=== PATIENT | female | born 1960 | race Caucasian/White ===

== ENCOUNTER 2023-11-08 09:25 | Inpatient (IN) | payer MEDICARE, OTHER, SELFPAY ==
[2023-11-08] VITALS (31 sets, daily range): BP systolic 130–235; BP diastolic 55–122; PULSE 68–78; RESP 12–20; TEMP 36–36.6; O2SAT 90–98; BMI 44.1; BMI 43.4
--- NOTE | 2023-11-08 09:44 | CT_ITS ---
STUDY: CT BRAIN WITHOUT CONTRAST REASON FOR EXAM: Female, 63 years old. Headache, high BP RADIATION DOSAGE (If Supplied By Facility): CTDIvol = ( 44.99 ) mGy, DLP = ( 812.98 ) mGycm TECHNIQUE: Transaxial CT imaging of the brain was performed without administration of intravenous contrast material. Individualized dose optimization techniques were used for this CT. COMPARISON: No relevant priors. FINDINGS: Normal soft tissue structures. Normal calvarium. There is mild cerebral atrophy with widening of the extra-axial spaces and ventricular dilatation. Normal white matter tracts of the cerebral hemispheres. Normal basal ganglia and thalami. Normal brainstem. Normal cerebellum. There is no intracranial hemorrhage. There are no findings of an acute ischemic infarction. Normal visualized paranasal sinuses. CT/Brain/Head without Contrast IMPRESSION: Chronic involutional changes of the brain. Electronically Signed: Moshe Arguello MD at 10:19 EDT ,
--- NOTE | 2023-11-08 09:45 | EX.ED.VIS.HA ---
HPI History of Present Illness Chief Complaint: Headache Informant: patient and EMS Narrative Narrative: 63-year-old female presents around 9:30 AM for severe headache that she woke up with a couple hours ago this morning. It is bifrontal. Other than some nausea no other symptoms. She has had no syncope or loss of consciousness since she woke up with this. She does not usually get headaches that she took her blood pressure at home, and it was 218/137. She called her daughter who is a shopper insights manager and asked her for advice and she advised that she call her local EMS and present to the ER which she did. She does not take any medication for blood pressure. She has a PCP that she sees regularly. She denies any recent illness or injury, she denies taking any zgbc-rel-sukspuu medications for anything recently except from ibuprofen this morning for the headache after it started. She denies any focal neurologic symptoms, problems with urine output, or chest discomfort/dyspnea. Pain does not go into her neck or anywhere else. She denies any photophobia or vision changes or peripheral neurologic symptoms. PFSH PFSH Medical History no medical history no medical history Allergy/AdvReac Type Severity Reaction Status Date / Time No Known Allergies Allergy Verified 11/08/23 09:27 Family History no significant family his Surgical History H/O myomectomy Social History household members: spouse housing: house current occupational status: employed Smoking Status: Never smoker ROS ROS ED Constitutional Constitutional ED: Denies chills or fever(s) Eyes Eyes: Denies change in vision or diplopia ENT ENT ED: Denies rhinorrhea or sore throat Cardiovascular Cardiovascular: Denies chest pain or palpitations Respiratory/Chest Respiratory/Chest: Denies cough or dyspnea Gastrointestinal Gastrointestinal: Reports nausea; Denies abdominal pain, diarrhea or vomiting Genitourinary Genitourinary ED: Denies dysuria or hematuria Musculoskeletal Musculoskeletal: Denies back pain or neck pain Integumentary Denies abscess or rash Neurologic Neurologic: Reports as per HPI and headache(s); Denies paresthesias, seizure-like activity or weakness Psychiatric Psychiatric: Denies suicidal thoughts EXAM Physical Exam Const Vital Signs: 11/08/23 09:27 11/08/23 09:52 11/08/23 10:23 Temperature 96.8 F L Temperature Source Temporal Pulse Rate 78 76 70 Respiratory Rate 14 16 Blood Pressure 235/122 H 234/113 H 212/108 H Blood Pressure Mean 159 153 142 Pulse Ox 98 98 Oxygen Delivery Method Room Air Room Air 11/08/23 11:00 11/08/23 11:30 11/08/23 12:00 Temperature Temperature Source Pulse Rate 68 70 Respiratory Rate 12 16 Blood Pressure 219/110 H 228/110 H 216/109 H Blood Pressure Mean 146 149 144 Pulse Ox 94 Oxygen Delivery Method 11/08/23 12:50 11/08/23 12:53 Temperature Temperature Source Pulse Rate 70 70 Respiratory Rate 16 16 Blood Pressure 211/101 H 211/101 H Blood Pressure Mean 137 137 Pulse Ox 95 Oxygen Delivery Method Room Air Positive well nourished and well developed General Appearance ED: well developed and NAD HEENT Reports moist mucous membranes normocephalic and atraumatic Eyes PERRL and EOMs intact bilaterally Neck full ROM, no lymphadenopathy, supple and no meningeal signs Resp normal respiratory effort and clear to auscultation bilaterally Cardio regular rate and regular rhythm Cardio Narrative: Suspect soft systolic ejection murmur LLSB 1 GI non-tender and non-distended Auscultation: normoactive bowel sounds Palpation: soft Back/Spine no CVA tenderness General Back: other FROM Extremity normal to inspection General Extremety ED: Negative for edema, pulses abnormal or tenderness General Extremity: Negative for edema or pulses abnormal Neuro oriented x3, CN's II-XII intact bilaterally and no sensory deficits noted Neuro Narrative: Normal speech and receptionist clerk. Normal sensation and strength. Rgtlbb-rb-[id number] and tjks-xp-[id number] normal bilaterally. NIHSS 0. Sensorium / Orientation: awake and alert Motor Exam: strength 5/5 throughout Psych mental status grossly normal Skin no rashes or lesions noted and no wounds MDM MDM MDM Narrative Medical decision making narrative: Sent the patient for stat CT of the head, it is negative for acute hemorrhage, I reviewed the images and report which I agree with, and I am at a very low suspicion for an acute subarachnoid hemorrhage based on the patient's symptoms, I do not think she needs a CTA or a lumbar puncture. Labs are noted she is hyperglycemic. She is not a known diabetic. Unknown how this could be related to her headaches. She is not hypercalcemic. In the meantime while we are working her up, she was given several doses of antihypertensives. Initially labetalol 20 mg, followed by hydralazine 10 mg later, neither 1 of these really touched her blood pressure. I cannot get her below 216/109. She still has a headache but she is neurologically intact and stable. I advised admitting her to the hospital for placing her on a Cardene drip with a goal to be systolic 160. Discussed with hospitalist. In discussing with patient further, the last time she checked her blood pressure other than today --she was at her doctor 5 days ago and it was 175 systolic in the office. The last time she had seen her doctor prior to that was 2012 and she really does not check her blood pressure. However after the doctor's visit, she is been checking it all week and it has been around 200 or so until today when it was higher. She was not prescribed any antihypertensives yet. She was post to follow-up in December. Since I am having trouble controlling her blood pressure I think admitting her to get it under control is going to be best for her. She is amenable to that. Lab Data Attestation: I reviewed the patient's lab results. Labs: Laboratory Results - last 24 hr 11/08/23 09:35 WBC 8.9 RBC 6.69 H Hgb 15.7 H Hct 52.2 H MCV 78.0 L MCH 23.5 L MCHC 30.1 L RDW Std Deviation 39.2 RDW Coeff of Osmin 14.7 H Plt Count 278 MPV 11.0 Immature Gran % (Auto) 0.200 Neut % (Auto) 71.4 H Lymph % (Auto) 17.9 L Nelson % (Auto) 7.4 Eos % (Auto) 2.1 Baso % (Auto) 1.0 Absolute Neuts (auto) 6.4 Absolute Lymphs (auto) 1.60 Nucleated RBC % 0 Sodium 134 L Potassium 4.1 Chloride 98 Carbon Dioxide 28.0 Anion Gap 8 BUN 19 H Creatinine 0.77 Estim Creat Clear Calc 87.90 Est GFR (MDRD) Af Amer 97 Est GFR (MDRD) Non-Af 80 BUN/Creatinine Ratio 24.8 H Glucose 372 H Calcium 8.8 Radiography Diagnostic Testing: Clinical Impression(s) from Imaging Studies Brain CT 11/08/23 09:44 IMPRESSION: Chronic involutional changes of the brain. Electronically Signed: Moshe Arguello MD at 10:19 EDT , Management Discussion w/another healthcare provider: Hospitalist Critical Care Time Critical Care Time: Yes Critical care time (excluding procedures): 30-74 minutes (33 min), Including time spent:, Discussing w/Patient &/or Family/Customs Consultant, Discussing w/Consultants, Arranging Admission or Transfer and Performing Direct Patient Care at Bedside Discharge Plan Dx/Rx/DC Orders Clinical Impression: Malignant hypertensive urgency, Acute hyperglycemia Disposition Disposition: [facility]
[2023-11-08 09:50] LABS: Absolute Neutrophil Count 6.4 X10^3/uL (2.0-7.7); Basophil# 0.09 X10^3/uL; Eosinophil# 0.19 X10^3/uL; Eosinophils% 2.1 % (0-5); Hematocrit 52.2 % (37-47); Hemoglobin 15.7 g/dL (12.0-15.0); Lymphocyte % 17.9 % (19-41); Mean Corp Hgb Conc 30.1 g/dL (32-36); Mean Corpuscular Hgb 23.5 pg (27.0-32.0); Monocyte# 0.66 X10^3/uL; Monocyte% 7.4 % (0-10); NRBC Flagged by Analyzer 0 % (0-5); Neutrophil # 6.37 X10^3/uL (2.7-7.7); Neutrophil % 71.4 % (47-70); Platelet Count 278 K/mm3 (150-450); RBC Distribution Width CV 14.7 % (11.6-14.6); RBC Distribution Width SD 39.2 fl (35.1-43.9); Red Blood Count 6.69 M/mm3 (4.2-5.4); White Blood Count 8.9 K/mm3 (4.4-11.0)
[2023-11-08] MEDS: Labetalol (Prefilled) 20 MG/4 ML IV (09:52)
[2023-11-08 10:02] LABS: Anion Gap 8 (5-15); BUN 19 mg/dL (7-18); BUN/Creat Ratio 24.8 RATIO (10-20); Calcium,Total 8.8 mg/dL (8.5-10.1); Chloride 98 mmol/L (98-107); Creatinine, Serum 0.77 mg/dL (0.55-1.02); EST Glomerular Filtration Rate 80 mL/min (>60); Est Glom Filt Rate - Afr Amer 97 mL/min (>60); Glucose 372 mg/dL (74-106); Potassium 4.1 mmol/L (3.5-5.1); Sodium Level 134 mmol/L (136-145)
[2023-11-08] MEDS: hydrALAZINE 20 MG/ML Vial 10 MG IV (11:29)
[2023-11-08] MEDS: NICARdipine 25 MG in 0.9% Normal Saline (250mL Bag) 240 ML 50 MG CONT INF (12:50)
--- NOTE | 2023-11-08 13:56 | ECHOD_ITS ---
Reason For Study: HTN Procedure This was a 2D Doppler, Color Flow transthoracic echocardiogram. Myocardial strain analysis was performed in this exam to aid in the assessment of cardiac function. Exam performed portable in ICU/CCU. Left Ventricle Normal LV size. Moderate concentric left ventricular hypertrophy. The left ventricular ejection fraction is 55 %. Stage 2 diastolic dysfunction. No regional wall motion abnormalities noted. Right Ventricle Normal RV size. Normal systolic function. Atria The left atrium is mildly enlarged. Normal right atrium. Mitral Valve There is mild mitral annular calcification. Mild (1+) eccentric mitral valve insufficiency. Tricuspid Valve Normal tricuspid valve. Mild (1+) tricuspid valve insufficiency. Pulmonary artery systolic pressure is 38 mmHg. Aortic Valve Trisinus/trileaflet aortic valve. Mild focal aortic valve calcification. Pulmonic Valve Normal pulmonic valve. Great Vessels Normal aortic root. The pulmonary artery is normal size. Normal inferior vena cava. Pericardium/Pleural No pericardial effusion. MMode/2D Measurements & Calculations LVIDd: 4.9 cm IVSd: 1.3 cm Ao root diam: 3.3 cm LVIDs: 3.5 cm LVPWd: 1.5 cm RVDd: 3.9 cm FS: 28.6 % LAV(MOD-bp): 72.2 ml LVAd ap4: 26.0 cm2 SV(MOD-sp4): 38.8 ml LAV(MOD-bp) Indexed: 33.2 ml/m2 LVLd ap4: 7.9 cm LAV(MOD-sp2): 75.2 ml EDV(MOD-sp4): 72.9 ml LAV(MOD-sp4): 65.1 ml EDV(sp4-el): 72.8 ml LVAs ap4: 15.8 cm2 LVLs ap4: 6.6 cm ESV(MOD-sp4): 34.0 ml ESV(sp4-el): 32.3 ml EF(MOD-sp4): 53.3 % EF(sp4-el): 55.7 % SV(sp4-el): 40.5 ml LA A4 area: 23.2 cm2 LA dimension(2D): 4.4 cm RA A4 area: 17.6 cm2 TAPSE: 3.0 cm Time Measurements MV dec time: 0.21 sec Doppler Measurements & Calculations MV E max luca: 96.9 cm/sec Lat Peak E' Luca: 6.9 cm/sec Med Peak E' Luca: 5.9 cm/sec MV A max luca: 65.3 cm/sec E/E' lat: 14.0 E/E' med: 16.6 MV E/A: 1.5 Ao V2 max: 175.7 cm/sec LV V1 max: 112.5 cm/sec MV dec slope: 471.5 cm/sec2 Ao max P.3 mmHg LV V1 max P.1 mmHg Ao V2 mean: 127.3 cm/sec Ao mean P.0 mmHg Ao V2 VTI: 39.7 cm PA V2 max: 102.7 cm/sec TR max luca: 295.3 cm/sec TR max P.9 mmHg ECHO/Echo Complete Interpretation Summary Normal LV size. The left ventricular ejection fraction is 55 %. Stage 2 diastolic dysfunction. Moderate concentric left ventricular hypertrophy. The global longitudinal strain = -15.3% (abnormal). The global longitudinal str ain is mildly abnormal. Ordering Physician: Javon Urbina Referring Physician: Kassandra Hollins Performed By: Nyasia Garnett, TINCS, RVT
[2023-11-08] MEDS: amLODIPine 10 MG Tablet PO (14:18)
--- NOTE | 2023-11-08 15:00 | CASEMGMT ---
RN CM Face to Face with patient for initial transition planning/care coordination assessment. RN CM introduced self and role at [facility]. Patient lying in bed, alert and oriented. Patient willing to participate in assessment and is able to answer all questions appropriately. Care providers, pharmacy, and demographics verified. PCP: Gunjan Specialists: none Preferred Pharmacy: [facility] Prescription Benefit: yes Living Will/HPOA: none LNOK: , daughter Living Arrangements: Patient lives with in a 2 story home with bed and bath on first floor, 5 steps to enter. Patient is independent at home. Transportation: self, DME/HHC: Patient has BP cuff and walker at home. No previous HHC or SNF Patient wishes to discharge home, denies need for home health at this time. Patient states he has no further needs or concerns at this time. CM to follow for discharge planning needs that may arise. Disposition Plan: Patient to discharge home with family support and follow-up plans in place. Meseret CRESPO, RN, CM
[2023-11-08] MEDS: Lisinopril 5 MG Tablet PO ×2 (15:11→21:18)
[2023-11-08] MEDS: Carvedilol 6.25 MG Tablet PO ×2 (15:11→21:18)
[2023-11-08 15:39] LABS: Bedside Glucose 365 mg/dL (74-106)
[2023-11-08] MEDS: Insulin Lispro 100 UNIT/ML INSULN.PEN SC ×2 (15:56→21:17)
[2023-11-08 16:36] LABS: Hemoglobin A1c 11.2 % (3.8-5.6)
--- NOTE | 2023-11-08 17:51 | PCM.HP.STD ---
HPI - General General Date of Admission: 11/08/23 HPI Narrative NASEEM ROTHMAN, is a 63 F who presents to the hospital with significant headache that started this morning when she woke up. She has been having issues with elevated blood pressures and had gone to her doctor a few days ago and was found to have systolics at 175. It appears that they are waiting for lab work to come back prior to starting any medications. Here in the ER her systolics were over 200 and it was not responsive to labetalol and so she was started on nicardipine drip. She states that about 3-1/2 years ago her systolic blood pressure was in the 130s and that she recently has lost about 100 pounds. Of note her blood sugar was also in the 300s and A1c was ordered in the ER which was 11.2. [facility] Medical History no medical history Allergy/AdvReac Type Severity Reaction Status Date / Time No Known Allergies Allergy Verified 11/08/23 09:27 Family History (Updated 11/08/23 @ 17:[address] Javon Urbina MD) Other Cancer Heart disease Family History no significant family his Surgical History H/O myomectomy Social History household members: spouse housing: house current occupational status: employed Smoking Status: Never smoker ROS Constitutional Constitutional: Denies chills, fatigue, fever(s) or malaise Eyes Eyes: Denies blurry vision ENT HEENT: Reports headache(s); Denies nasal discharge Cardiovascular Cardiovascular: Reports dyspnea on exertion; Denies chest pain or syncope Respiratory/Chest Respiratory/Chest: Denies cough, shortness of breath at rest or shortness of breath with exertion Gastrointestinal Gastrointestinal: Denies constipation, diarrhea, nausea or vomiting Genitourinary Genitourinary: Denies dysuria Neurologic Neurologic: Denies focal weakness, numbness or tremor(s) Psychiatric Psychiatric: Denies anxiety or depression Vital Signs Vital Signs Vital Signs: 11/08/23 09:27 11/08/23 09:52 11/08/23 10:23 Temperature 96.8 F L Temperature Source Temporal Pulse Rate 78 76 70 Respiratory Rate 14 16 Blood Pressure 235/122 H 234/113 H 212/108 H Blood Pressure Mean 159 153 142 Blood Pressure Source Blood Pressure Position Blood Pressure Location Pulse Ox 98 98 Oxygen Delivery Method Room Air Room Air 11/08/23 11:00 11/08/23 11:30 11/08/23 12:00 Temperature Temperature Source Pulse Rate 68 70 Respiratory Rate 12 16 Blood Pressure 219/110 H 228/110 H 216/109 H Blood Pressure Mean 146 149 144 Blood Pressure Source Blood Pressure Position Blood Pressure Location Pulse Ox 94 Oxygen Delivery Method 11/08/23 12:50 11/08/23 12:53 11/08/23 12:56 Temperature Temperature Source Pulse Rate 70 70 70 Respiratory Rate 16 16 17 Blood Pressure 211/101 H 211/101 H 208/95 H Blood Pressure Mean 137 137 129 Blood Pressure Source Blood Pressure Position Blood Pressure Location Pulse Ox 95 Oxygen Delivery Method Room Air 11/08/23 13:00 11/08/23 13:05 11/08/23 13:10 Temperature Temperature Source Pulse Rate 70 72 71 Respiratory Rate 16 17 15 Blood Pressure 203/102 H 206/100 H 204/93 H Blood Pressure Mean 129 131 125 Blood Pressure Source Blood Pressure Position Blood Pressure Location Pulse Ox Oxygen Delivery Method 11/08/23 13:15 11/08/23 13:16 11/08/23 13:17 Temperature 98 F Temperature Source Pulse Rate 71 70 70 Respiratory Rate 18 17 Blood Pressure 204/93 H 186/80 H Blood Pressure Mean 130 115 Blood Pressure Source Blood Pressure Position Blood Pressure Location Pulse Ox 95 Oxygen Delivery Method 11/08/23 13:39 11/08/23 13:59 11/08/23 14:15 Temperature 97.8 F Temperature Source Oral Pulse Rate 70 71 70 Respiratory Rate 18 16 Blood Pressure 188/81 H 144/64 H 144/64 H Blood Pressure Mean 116 90 90 Blood Pressure Source Monitor Monitor Blood Pressure Position Semi-Fowlers Semi-Fowlers Blood Pressure Location Right Arm Right Arm Pulse Ox 95 94 Oxygen Delivery Method Room Air Room Air 11/08/23 14:30 11/08/23 14:45 11/08/23 15:00 Temperature Temperature Source Pulse Rate 71 70 69 Respiratory Rate 16 16 16 Blood Pressure 148/75 H 155/82 H 155/78 H Blood Pressure Mean 99 106 103 Blood Pressure Source Monitor Monitor Monitor Blood Pressure Position Semi-Fowlers Semi-Fowlers Semi-Fowlers Blood Pressure Location Right Arm Right Arm Right Arm Pulse Ox 94 92 93 Oxygen Delivery Method Room Air Room Air Room Air 11/08/23 15:32 11/08/23 16:00 11/08/23 16:30 Temperature Temperature Source Pulse Rate 70 70 72 Respiratory Rate 18 20 H Blood Pressure 154/93 H 154/57 H 164/76 H Blood Pressure Mean 113 89 105 Blood Pressure Source Monitor Monitor Monitor Blood Pressure Position Semi-Fowlers Semi-Fowlers Blood Pressure Location Right Arm Right Arm Pulse Ox 95 94 Oxygen Delivery Method Room Air Room Air 11/08/23 17:00 Temperature Temperature Source Pulse Rate 70 Respiratory Rate 16 Blood Pressure 165/81 H Blood Pressure Mean 109 Blood Pressure Source Monitor Blood Pressure Position Semi-Fowlers Blood Pressure Location Left Arm Pulse Ox 92 Oxygen Delivery Method Room Air Weight Weight: 254 lb 6.615 oz Body Mass Index (BMI) 43.4 Physical Exam Narrative General: Alert, Oriented x3, Cooperative, No apparent distress HEENT: Atraumatic, PERRLA, EOMI, Normocephalic Oral: Moist Mucosa Neck: Supple, No JVD Lungs: Diminished, Normal air movement, No rhonchi, No wheeze, No rales Cardiovascular: Regular rate, Regular Rhythm, Normal S1, Normal S2, No murmurs Abdomen: Soft, Non Tender, Non-Distended, No Hepato-splenomegaly Extremities: No edema, Capillary Refill Less than 3 Seconds Skin: No rashes, No breakdown Musculoskeletal: No Tenderness to Palpation of Joints or Extremities Neurological: No focal neurological deficits, Motor Exam 5/5 strength throughout, Sensory exam intact to light touch and pain Psych/Mental Status: Normal Affect, Appropriate Results Lab / Micro Data 11/08/23 09:35 11/08/23 09:35 Labs: Laboratory Results - last 24 hr 11/08/23 09:35: WBC 8.9, RBC 6.69 H, Hgb 15.7 H, Hct 52.2 H, MCV 78.0 L, MCH 23.5 L, MCHC 30.1 L, RDW Std Deviation 39.2, RDW Coeff of Osmin 14.7 H, Plt Count 278, MPV 11.0, Immature Gran % (Auto) 0.200, Neut % (Auto) 71.4 H, Lymph % (Auto) 17.9 L, [place] % (Auto) 7.4, Eos % (Auto) 2.1, Baso % (Auto) 1.0, Absolute Neuts (auto) 6.4, Absolute Lymphs (auto) 1.60, Nucleated RBC % 0, Sodium 134 L, Potassium 4.1, Chloride 98, Carbon Dioxide 28.0, Anion Gap 8, BUN 19 H, Creatinine 0.77, Estim Creat Clear Calc 87.90, Est GFR (MDRD) Af Amer 97, Est GFR (MDRD) Non-Af 80, BUN/Creatinine Ratio 24.8 H, Glucose 372 H, Hemoglobin A1c 11.2 H, Calcium 8.8 11/08/23 15:16: POC Glucose 365 H Imaging Radiology Impression Brain CT 11/08/23 09:44 IMPRESSION: Chronic involutional changes of the brain. Electronically Signed: Moshe Arguello MD at 10:19 EDT , Echocardiogram 11/08/23 13:56 Interpretation Summary Normal LV size. The left ventricular ejection fraction is 55 %. Stage 2 diastolic dysfunction. Moderate concentric left ventricular hypertrophy. The global longitudinal strain = -15.3% (abnormal). The global longitudinal strain is mildly abnormal. Ordering Physician: Javon Urbina Referring Physician: Kassandra Hollins Performed By: Nyasia Garnett, RDCS, RVT Assessment & Plan Assessment/Plan (1) Hypertensive urgency: (2) Diabetes mellitus, type 2: (3) Diastolic CHF, chronic: PLAN: Plan 1. Hypertensive urgency/diastolic CHF ? Echo came back with an EF of 55% and stage II diastolic dysfunction ? Will continue with Coreg at 6.25 mg p.o. twice daily as well as lisinopril 5 mg p.o. twice daily and Norvasc 10 mg daily ? Will add Jardiance both for her diastolic CHF as well as her newly diagnosed type 2 diabetes ? Do not want to be too aggressive in lowering her blood pressure given that she is likely been severely elevated for quite a while ? Will obtain a lipid panel in the morning 2. Type 2 diabetes ? This is a new diagnosis, A1c of 11.2 ? Continue with sliding scale insulin as well as mealtime insulin and long-acting insulin ? Will add Jardiance ? Will likely need to be discharged on metformin as well DVT: Ryanne 75 minutes was spent on direct patient care, including documentation as well as chart review and collaboration with colleagues Charges/Coding Visit Charges Inpatient E&M: 12432 Init Hosp L3
[2023-11-08] MEDS: Ondansetron 4 MG/2 ML Vial IV (18:44)
[2023-11-08] MEDS: Acetaminophen 325 MG Tablet 650 MG PO (21:14)
[2023-11-08] MEDS: Insulin Glargine-YFGN 100 UNIT/ML Pen 10 UNIT SC (21:17)
[2023-11-08 21:39] LABS: Bedside Glucose 245 mg/dL (74-106)
[2023-11-09] VITALS (21 sets, daily range): BP systolic 120–182; BP diastolic 57–100; PULSE 61–75; RESP 13–20; TEMP 36.2–36.6; O2SAT 87–96; BMI 43.9
[2023-11-09] MEDS: Acetaminophen 325 MG Tablet 650 MG PO ×3 (03:44→19:28)
[2023-11-09] MEDS: 0.9% Saline Lock 10 ML Syringe IV (03:45)
[2023-11-09 03:49] LABS: Absolute Lymphocyte Count 2.57 X10^3/uL (0.83-4.51); Absolute Neutrophil Count 6.5 X10^3/uL (2.0-7.7); Basophil# 0.06 X10^3/uL; Basophil% 0.6 % (0-1); Eosinophil# 0.14 X10^3/uL; Eosinophils% 1.4 % (0-5); Hematocrit 46.8 % (37-47); Hemoglobin 14.3 g/dL (12.0-15.0); Lymphocyte # 2.57 X10^3/ul (0.83-4.51); Lymphocyte % 25.7 % (19-41); Mean Corp Hgb Conc 30.6 g/dL (32-36); Mean Corpuscular Hgb 23.8 pg (27.0-32.0); Mean Corpuscular Volume 77.7 fL (81-99); Mean Platelet Vol. 10.9 fl (6.2-12.0); Monocyte# 0.71 X10^3/uL; Monocyte% 7.1 % (0-10); NRBC Flagged by Analyzer 0 % (0-5); Neutrophil # 6.49 X10^3/uL (2.7-7.7); Neutrophil % 64.9 % (47-70); Platelet Count 240 K/mm3 (150-450); RBC Distribution Width SD 39.2 fl (35.1-43.9); Red Blood Count 6.02 M/mm3 (4.2-5.4)
[2023-11-09 04:13] LABS: Anion Gap 7 (5-15); BUN 25 mg/dL (7-18); BUN/Creat Ratio 32.8 RATIO (10-20); Calcium,Total 8.6 mg/dL (8.5-10.1); Chloride 100 mmol/L (98-107); Cholesterol 236 mg/dL (200); Creatinine, Serum 0.76 mg/dL (0.55-1.02); EST Glomerular Filtration Rate 81 mL/min (>60); Est Glom Filt Rate - Afr Amer 98 mL/min (>60); Estimated Creatinine Clearance 87.41 ml/min; Glucose 230 mg/dL (74-106); High Density Lipoprotein 29 mg/dL; Potassium 3.7 mmol/L (3.5-5.1); Sodium Level 134 mmol/L (136-145); Triglycerides 167 mg/dL; Very Low Density Lipoprotein 33 mg/dL (5-40)
[2023-11-09] MEDS: Insulin Lispro 100 UNIT/ML INSULN.PEN SC ×5 (09:00→17:21)
--- NOTE | 2023-11-09 09:03 | RAD_ITS ---
INDICATION: SOB and hypoxia EXAMINATION/TECHNIQUE: X-RAY - XR Chest 2 Views COMPARISON: No relevant prior comparison study available FINDINGS: LINES/DEVICES: None. LUNGS: No consolidation, edema or effusion. No pneumothorax. MEDIASTINUM AND CARDIOVASCULAR STRUCTURES: Cardiac silhouette not enlarged. Central airways and mediastinal contour are unremarkable. BONES AND SOFT TISSUES: Unremarkable. RAD/Chest PA and Lateral IMPRESSION: No radiographic evidence of acute cardiopulmonary disease. Electronically Signed: Mihir Hernandez MD at 11:27 EDT ,
--- NOTE | 2023-11-09 09:05 | PN.HOSP_ITS ---
Subjective Subjective Continues to have a little bit of a headache as well as congestion had been placed on a lot of oxygen last night Objective Data Objective Data Vital Signs: Vital Signs Temp Pulse Resp BP Pulse Ox O2 Del Method O2 Flow Rate 97.2 F L 64 13 160/100 H 91 Nasal Cannula 2 11/09/23 08:00 11/09/23 08:00 11/09/23 08:00 11/09/23 08:00 11/09/23 08:43 11/09/23 08:43 11/09/23 08:43 Oxygen Flow Rate (L/min) 2 Oxygen Delivery Method Nasal Cannula Weight: 257 lb 7.999 oz Body Mass Index (BMI) 43.9 Intake & Output: Intake and Output for Last 24 Hours 11/08/23 11/09/23 11/10/23 03:59 03:59 03:59 Intake Total 110.42 / 110.42 Balance 110.42 / 110.42 Lab / Micro Data 11/09/23 03:40 11/09/23 03:40 Labs: Laboratory Results - last 24 hr 11/08/23 09:35: WBC 8.9, RBC 6.69 H, Hgb 15.7 H, Hct 52.2 H, MCV 78.0 L, MCH 23.5 L, MCHC 30.1 L, RDW Std Deviation 39.2, RDW Coeff of Osmin 14.7 H, Plt Count 278, MPV 11.0, Immature Gran % (Auto) 0.200, Neut % (Auto) 71.4 H, Lymph % (Auto) 17.9 L, [place] % (Auto) 7.4, Eos % (Auto) 2.1, Baso % (Auto) 1.0, Absolute Neuts (auto) 6.4, Absolute Lymphs (auto) 1.60, Nucleated RBC % 0, Sodium 134 L, Potassium 4.1, Chloride 98, Carbon Dioxide 28.0, Anion Gap 8, BUN 19 H, Creatinine 0.77, Estim Creat Clear Calc 87.90, Est GFR (MDRD) Af Amer 97, Est GFR (MDRD) Non-Af 80, BUN/Creatinine Ratio 24.8 H, Glucose 372 H, Hemoglobin A1c 11.2 H, Calcium 8.8 11/08/23 15:16: POC Glucose 365 H 11/08/23 21:16: POC Glucose 245 H 11/09/23 03:40: WBC 10.0, RBC 6.02 H, Hgb 14.3, Hct 46.8, MCV 77.7 L, MCH 23.8 L , MCHC 30.6 L, RDW Std Deviation 39.2, RDW Coeff of Osmin 14.0, Plt Count 240, MPV 10.9, Immature Gran % (Auto) 0.300, Neut % (Auto) 64.9, Lymph % (Auto) 25.7, [place] % (Auto) 7.1, Eos % (Auto) 1.4, Baso % (Auto) 0.6, Absolute Neuts (auto) 6.5, Absolute Lymphs (auto) 2.57, Nucleated RBC % 0, Sodium 134 L, Potassium 3.7, Chloride 100, Carbon Dioxide 27.0, Anion Gap 7, BUN 25 H, Creatinine 0.76, Estim Creat Clear Calc 87.41, Est GFR (MDRD) Af Amer 98, Est GFR (MDRD) Non-Af 81, BUN/Creatinine Ratio 32.8 H, Glucose 230 H, Calcium 8.6, Triglycerides 167, Cholesterol 236 H, LDL Cholesterol 174 H, VLDL Cholesterol 33, HDL Cholesterol 29 L Radiography Diagnostic Testing: Radiology Impression Brain CT 11/08/23 09:44 IMPRESSION: Chronic involutional changes of the brain. Electronically Signed: Moshe Arguello MD at 10:19 EDT , Echocardiogram 11/08/23 13:56 Interpretation Summary Normal LV size. The left ventricular ejection fraction is 55 %. Stage 2 diastolic dysfunction. Moderate concentric left ventricular hypertrophy. The global longitudinal strain = -15.3% (abnormal). The global longitudinal strain is mildly abnormal. Ordering Physician: Javon Urbina Referring Physician: Kassandra Hollins Performed By: Nyasia Garnett, RDCOLBY, RVT Physical Exam Narrative General: Alert, Oriented x3, Cooperative, No apparent distress HEENT: Atraumatic, PERRLA, EOMI, Normocephalic Oral: Moist Mucosa Neck: Supple, No JVD Lungs: Diminished, Normal air movement, No rhonchi, No wheeze, No rales Cardiovascular: Regular rate, Regular Rhythm, Normal S1, Normal S2, No murmurs Abdomen: Soft, Non Tender, Non-Distended, No Hepato-splenomegaly Extremities: No edema, Capillary Refill Less than 3 Seconds Skin: No rashes, No breakdown Musculoskeletal: No Tenderness to Palpation of Joints or Extremities Neurological: No focal neurological deficits, Motor Exam 5/5 strength throughout, Sensory exam intact to light touch and pain Psych/Mental Status: Normal Affect, Appropriate Assessment & Plan Assessment/Plan (1) Hypertensive urgency: (2) Diabetes mellitus, type 2: (3) Diastolic CHF, chronic: PLAN: Plan 1. Hypertensive urgency/diastolic CHF ? Echo came back with an EF of 55% and stage II diastolic dysfunction ? Will continue with Coreg at 6.25 mg p.o. twice daily as well as lisinopril 5 mg p.o. twice daily and Norvasc 10 mg daily ? Will add Jardiance both for her diastolic CHF as well as her newly diagnosed type 2 diabetes ? Do not want to be too aggressive in lowering her blood pressure given that she is likely been severely elevated for quite a while ?Lipid panel with an elevated LDL and cholesterol, will start Lipitor 2. Type 2 diabetes ? This is a new diagnosis, A1c of 11.2 ? Continue with sliding scale insulin as well as mealtime insulin and long- acting insulin ? Will add Jardiance ? Will likely need to be discharged on metformin as well DVT: Lovenox Charges/Coding Visit Charges Inpatient E&M: 38449 Subs Hosp L2
[2023-11-09] MEDS: Ondansetron 4 MG/2 ML Vial IV (09:06)
[2023-11-09 09:15] LABS: Bedside Glucose 268 mg/dL (74-106)
[2023-11-09] MEDS: Lisinopril 5 MG Tablet PO ×2 (10:08→21:31)
[2023-11-09] MEDS: Carvedilol 6.25 MG Tablet PO ×2 (10:08→21:30)
[2023-11-09] MEDS: amLODIPine 10 MG Tablet PO (10:09)
[2023-11-09] MEDS: Enoxaparin 40 MG/0.4 ML Syringe SC (10:10)
[2023-11-09] MEDS: Ibuprofen 200 MG Tablet PO ×2 (10:42→17:28)
[2023-11-09 10:51] LABS: Mucous, Urine 0 SEEN /hpf (<or=2+); Red Blood Cells-Urine 0 SEEN /hpf (0-5)
[2023-11-09 11:07] LABS: Color, Urine Yellow (Yellow); Glucose, Dipstick 250 mg/dl (Normal); Ketone-Dipstick 5 mg/dl (Negative); Leukocyte Esterase-Dipstick 25 /ul (Negative); Nitrite-Dipstick Negative (Negative); Occult Blood-Urine Negative /ul (Negative); Protein-Dipstick 500 mg/dl (Negative); Urine Bilirubin Dipstick Negative (Negative); Urine Clarity Clear (Clear); Urine Urobilinogen 1 mg/dl (Normal)
[2023-11-09 11:23] LABS: White Blood Cells 0-5 SEEN /hpf (0-5)
[2023-11-09 11:24] LABS: Bacteria 1+ /hpf (None Seen); Squamous Epithelial Cells - UA 0-5 SEEN /hpf (5-10)
[2023-11-09] MEDS: Empagliflozin 10 MG Tablet PO (12:23)
[2023-11-09 12:48] LABS: Bedside Glucose 254 mg/dL (74-106)
[2023-11-09 17:23] LABS: Bedside Glucose 182 mg/dL (74-106)
[2023-11-09] MEDS: Insulin Glargine-YFGN 100 UNIT/ML Pen 10 UNIT SC (21:30)
[2023-11-09] MEDS: Atorvastatin Calcium 40 MG Tablet PO (21:33)
[2023-11-09 22:05] LABS: Bedside Glucose 149 mg/dL (74-106)
[2023-11-10 04:00] VITALS: O2SAT 93
[2023-11-10 04:31] VITALS: BP 148/81; PULSE 68; RESP 16; TEMP 36.7; O2SAT 92
[2023-11-10] MEDS: Ibuprofen 200 MG Tablet PO (04:33)
[2023-11-10 06:57] LABS: Bedside Glucose 185 mg/dL (74-106)
[2023-11-10 07:20] VITALS: O2SAT 91
[2023-11-10 08:27] VITALS: BP 151/75; PULSE 72; RESP 18; TEMP 36.8; O2SAT 93
[2023-11-10] MEDS: Insulin Lispro 100 UNIT/ML INSULN.PEN SC ×2 (08:30→08:31)
[2023-11-10] MEDS: Lisinopril 5 MG Tablet PO (08:32)
[2023-11-10] MEDS: Empagliflozin 10 MG Tablet PO (08:32)
[2023-11-10] MEDS: Carvedilol 6.25 MG Tablet PO (08:32)
[2023-11-10] MEDS: amLODIPine 10 MG Tablet PO (08:33)
--- NOTE | 2023-11-10 10:35 | DCINST_ITS ---
Discharge Instructions Diet Discharge Diet: Low fat / Low cholesterol, 1600 Calorie Control Diet and Carb Control Diet Activity Discharge Activity: Return to Normal Activity Dressing / Incision Call your doctor if you observe: Fever of 101 or Higher, Shortness of breath, Dizziness, Fainting spells, Swelling in the ankles, Chest pain and Increased palpitations (irregular heartbeat) Follow Up Care Test Results: Test results from this visit will be discussed in further detail at your follow- up appointment, if applicable. Discharge Plan Admission Admit Date/Time: 11/08/23 12:19 Attending Provider: Javon Urbina Primary Care Provider: Kassandra Hollins Instructions Additional Instructions / Restrictions: Follow-up with your PCP in 3 to 5 days for lab work to monitor your renal function. Discharge Orders/Prescriptions Prescriptions: New atorvastatin 40 mg Tablet 40 mg PO QHS 30 Days Qty: 30 0RF carvedilol 6.25 mg Tablet 6.25 mg PO BID 30 Days Qty: 60 0RF amlodipine 10 mg Tablet 10 mg PO DAILY 30 Days Qty: 30 0RF Jardiance 10 mg Tablet 10 mg PO DAILY 30 Days Qty: 30 0RF insulin glargine-yfgn 100 unit/mL (3 mL) Insulin Pen 10 unit subcut QHS 30 Days Qty: 3 0RF lisinopril 10 mg tablet 10 mg PO DAILY 30 Days Qty: 30 0RF metformin 500 mg tablet extended release 24 hr 500 mg PO DAILY Qty: 30 0RF (DME) pen needle, diabetic 29 gauge x 1/2 needle See Rx Instructions .Route Qty: 100 0RF Rx Instructions: As directed Other Ambulatory Orders: Glucometer (Routine) Timeframe: 1 Day Location: Determined by Patient Ordered By: Dr. Javon Urbina Referrals / Follow Up: Kassandra Hollins MD [Primary Care Provider] - Within 1 Week Disposition Disposition (needs filled in before D/C Order can be placed): Home, Self Care
--- NOTE | 2023-11-10 11:06 | PCM.DC.SUM ---
Providers Date of Admission: 11/08/23 Primary Care Physician: Dr. Kassandra Hollins MD Reason For Visit: HYPERTENSION URGENCY Diagnosis Discharge Diagnosis (1) Hypertensive urgency: Status: Acute Code(s): I16.0 - Hypertensive urgency (2) Diabetes mellitus, type 2: Status: Acute Code(s): E11.9 - Type 2 diabetes mellitus without complications (3) Diastolic CHF, chronic: Status: Chronic Code(s): I50.32 - Chronic diastolic (congestive) heart failure Medications at Discharge Home Medications amlodipine 10 mg tablet 10 mg PO DAILY 30 days #30 tabs 11/10/23 atorvastatin 40 mg tablet 40 mg PO QHS 30 days #30 tabs 11/10/23 carvedilol 6.25 mg tablet 6.25 mg PO BID 30 days #60 tabs 11/10/23 empagliflozin 10 mg tablet (Jardiance) 10 mg PO DAILY 30 days #30 tabs 11/10/23 insulin glargine-yfgn 100 unit/mL (3 mL) subcutaneous pen 10 unit (0.1 mL) subcut QHS 30 days #3 mL 11/10/23 lisinopril 10 mg tablet 10 mg PO DAILY 30 days #30 tabs 11/10/23 metformin 500 mg tablet,extended release 24 hr 500 mg PO DAILY #30 tabs 11/10/23 pen needle, diabetic 29 gauge x 1/2 #100 ea 11/10/23 Hospital Course Operations None Procedures 2-D Echocardiogram Summary of Care Provided Minutes Spent on Discharge: 37 Hospital Course: Per HPI: NASEEM ROTHMAN, is a 63 F who presents to the hospital with significant headache that started this morning when she woke up. She has been having issues with elevated blood pressures and had gone to her doctor a few days ago and was found to have systolics at 175. It appears that they are waiting for lab work to come back prior to starting any medications. Here in the ER her systolics were over 200 and it was not responsive to labetalol and so she was started on nicardipine drip. She states that about 3-1/2 years ago her systolic blood pressure was in the 130s and that she recently has lost about 100 pounds. Of note her blood sugar was also in the 300s and A1c was ordered in the ER which was 11.2. Hospital Course: 1. Hypertensive urgency with new onset diastolic CHF as well as type 2 diabetes and hyperlipidemia?63-year-old female who has not seen a doctor in several years presents to the hospital with headache. Her blood pressures on admission were over 200. An echo was obtained which demonstrated an EF of 55% and stage II diastolic dysfunction so she was started on Jardiance given the fact that she also has an A1c of 11.2 and new onset diabetes. Will continue with Coreg 6.25 mg p.o. twice daily as well as Norvasc 10 mg p.o. daily. UA was obtained which demonstrates that she is spilling protein in her urine so she was started on lisinopril 10 mg p.o. daily. Given the severity of her A1c, she was started on insulin at 10 units at night and I did request that she check her blood sugars twice daily. Also plan to discharge her on metformin extended release 500 mg p.o. daily. I recommend she follow-up with her PCP in 3 to 5 days to monitor her renal function, I anticipate that if she sticks to a diet she may be able to come off the insulin fairly quickly and may be even the metformin. She would benefit from staying on the Jardiance given the mortality benefit seen in patients with heart failure whether it is systolic or diastolic. I discussed with her the plan for discharge today she expressed understanding of the risk benefits of going home and would like to go home today. I did have extensive discussions with her on lifestyle modifications including diet and exercise. Physical Exam Narrative General: Alert, Oriented x3, Cooperative, No apparent distress HEENT: Atraumatic, PERRLA, EOMI, Normocephalic Oral: Moist Mucosa Neck: Supple, No JVD Lungs: Diminished, Normal air movement, No rhonchi, No wheeze, No rales Cardiovascular: Regular rate, Regular Rhythm, Normal S1, Normal S2, No murmurs Abdomen: Soft, Non Tender, Non-Distended, No Hepato-splenomegaly Extremities: No edema, Capillary Refill Less than 3 Seconds Skin: No rashes, No breakdown Musculoskeletal: No Tenderness to Palpation of Joints or Extremities Neurological: No focal neurological deficits, Motor Exam 5/5 strength throughout, Sensory exam intact to light touch and pain Psych/Mental Status: Normal Affect, Appropriate Weight / BMI Weight Weight: 257 lb 7.999 oz Body Mass Index (BMI) 43.9 ABG / Lab / Microbiology Data 11/09/23 03:40 11/09/23 03:40 Laboratory: Laboratory Results - last 24 hr 11/09/23 10:41: Urine Color Yellow, Urine Clarity Clear, Urine pH 5.0, Ur Specific [place] 1.030, Urine Protein 500 H, Urine Glucose (UA) 250 H, Urine Ketones 5 H, Urine Occult Blood Negative, Urine Nitrite Negative, Urine Bilirubin Negative, Urine Urobilinogen 1 H, Ur Leukocyte Esterase 25 H, Urine RBC 0 SEEN, Urine WBC 0-5 SEEN, Ur Squamous Epith Cells 0-5 SEEN, Urine Bacteria 1+, Urine Mucus 0 SEEN 11/09/23 12:22: POC Glucose 254 H 11/09/23 17:05: POC Glucose 182 H 11/09/23 21:28: POC Glucose 149 H 11/10/23 06:27: POC Glucose 185 H Radiography Diagnostic Testing: Radiology Impression Chest X-Ray 11/09/23 09:03 IMPRESSION: No radiographic evidence of acute cardiopulmonary disease. Electronically Signed: Mihir Hernandez MD at 11:27 EDT , D/C Instructions Discharge Diet: Low fat / Low cholesterol, 1600 Calorie Control Diet and Carb Control Diet Call your doctor if you observe: Fever of 101 or Higher, Shortness of breath, Dizziness, Fainting spells, Swelling in the ankles, Chest pain and Increased palpitations (irregular heartbeat) Meaningful Use Info Meaningful Use Meaningful Use Diagnoses (Choose all that apply): None applicable Ischemic Stroke Statin Dosing Therapy Reference: STATIN DOSE THERAPY REFERENCE: * Patients > 75 years receive moderate or high dose statin therapy. * Patients 75 years or YOUNGER should receive HIGH intensity statin dose unless contraindicated. You will be required to document reason for non-treatment if statin daily dose does not meet guidelines. HIGH DOSE STATIN THERAPY DAILY Atorvastatin > than or = to 40 mg Rosuvastatin > than or = to 20 mg Amlodipine + Atorvastatin > than or = to 2.5/40 mg Ezetimibe + Simvastatin 10/80 mg Simvastatin 80mg Discharge Plan Admission Admit Date/Time: 11/08/23 12:19 Attending Provider: Javon Urbina Primary Care Provider: Gunjan,Kassandra Instructions Additional Instructions / Restrictions: Follow-up with your PCP in 3 to 5 days for lab work to monitor your renal function. Discharge Orders/Prescriptions Prescriptions: New atorvastatin 40 mg Tablet 40 mg PO QHS 30 Days Qty: 30 0RF carvedilol 6.25 mg Tablet 6.25 mg PO BID 30 Days Qty: 60 0RF amlodipine 10 mg Tablet 10 mg PO DAILY 30 Days Qty: 30 0RF Jardiance 10 mg Tablet 10 mg PO DAILY 30 Days Qty: 30 0RF insulin glargine-yfgn 100 unit/mL (3 mL) Insulin Pen 10 unit subcut QHS 30 Days Qty: 3 0RF lisinopril 10 mg tablet 10 mg PO DAILY 30 Days Qty: 30 0RF metformin 500 mg tablet extended release 24 hr 500 mg PO DAILY Qty: 30 0RF (DME) pen needle, diabetic 29 gauge x 1/2 needle See Rx Instructions .Route Qty: 100 0RF Rx Instructions: As directed Other Ambulatory Orders: Glucometer (Routine) Timeframe: 1 Day Location: Determined by Patient Ordered By: Dr. Javon Urbina Referrals / Follow Up: Kassandra Hollins MD [Primary Care Provider] - Within 1 Week Disposition Disposition (needs filled in before D/C Order can be placed): Home, Self Care Charges/Coding Visit Charges Inpatient E&M: 09241 Disch Hosp >30min
--- NOTE | 2023-11-14 10:05 | CASEMGMT ---
IGNACIA KELLY note: Fax received from [facility], requesting physician documentation for glucometer. Discharge summary faxed to [facility] at this time. Alex CRESPO RN CM
== END 2023-11-10 12:26 | disposition home or self-care (01) | DRG 305 ==
LOC: ED 12:27 → ICU 13:34 → PCU 11-09 16:04
PROVIDERS: Admitting Provider Family Medicine; Emergency Provider Emergency Medicine; PCP Family Medicine; Visit Provider Family Medicine
DX: I16.0 Hypertensive urgency (principal); I50.32 Chronic diastolic (congestive) heart failure; E11.9 Type 2 diabetes mellitus without complications; E78.5 Hyperlipidemia, unspecified
CPT/HCPCS: 70450; 71046; 80048; 80061; 81001; 82962; 83036; 85025; 93306; 99285; J7050; Q9957; A4216; J2405